=== PATIENT | male | born 1975 | race Hispanic/Latino ===

== ENCOUNTER 2020-10-29 18:30 | Emergency (ER) | payer OTHER ==
[~2020-10-29] VITALS: Ht 175.3 cm; Wt 118.1 kg
[2020-10-29] MEDS ORDERED: LEXA1TAB2 PO (18:40)
[2020-10-29] MEDS ORDERED: ATOR80TA59 PO (18:40)
[2020-10-29] MEDS ORDERED: RISP-9 PO (18:40)
--- NOTE | 2020-10-29 19:36 | REPVR ---
PROCEDURE INFORMATION: Exam: CT Head Without Contrast Exam date and time: 10/29/2020 6:46 PM Age: 44 years old Clinical indication: Other: Seizure; Additional info: Seizure, confusion TECHNIQUE: Imaging protocol: Computed tomography of the head without contrast. Radiation optimization: All CT scans at this facility use at least one of these dose optimization techniques: automated exposure control; mA and/or kV adjustment per patient size (includes targeted exams where dose is matched to clinical indication); or iterative reconstruction. COMPARISON: No relevant prior studies available. FINDINGS: Brain: There is no evidence of intracranial bleed. The plummer-white differentiation appears preserved. Cerebral ventricles: Normal ventricles. Paranasal sinuses: Clear paranasal sinuses. Mastoid air cells: Clear mastoid air cells. Bones/joints: There is no evidence of fracture. Soft tissues: Unremarkable. IMPRESSION: 1. No evidence of bleed. 2. No evidence of mass effect. 3. An MRI scan with contrast might be a more sensitive exam for seizures. Electronically signed by: Matthew Whittaker On 10/29/2020 19:36:14 PM
[2020-10-29 21:47] LABS: BASO # 0.1 10^3/uL (0.0-0.2); BASO % 0.7 % (0.0-1.0); EOS # 0.3 10^3/uL (0.0-0.5); EOS % 3.3 % (0.0-3.0); HEMOGLOBIN 15.9 g/dl (13.5-17.5); LYMPH # 3.7 10^3/uL (1.5-5.0); LYMPH % 38.8 % (24.0-44.0); MEAN CORPUSCULAR HEMOGLOBIN 31.4 pg (27.0-33.0); MEAN CORPUSCULAR HGB CONC 33.8 g/dl (32.0-36.5); MEAN CORPUSCULAR VOLUME 92.7 fl (80.0-96.0); MONO % 10.2 % (2.0-8.0); NEUTROPHILS # 4.4 10^3/uL (1.5-8.5); NEUTROPHILS % 46.5 % (36.0-66.0); PLATELET COUNT, AUTOMATED 196 10^3/uL (150-450); RED BLOOD COUNT 5.07 10^6/uL (4.30-6.10); WHITE BLOOD COUNT 9.5 10^3/uL (4.0-10.0)
[2020-10-29 22:16] LABS: CK-MB VALUE MASS 2.6 NG/ML (<3.6); MB/CK RELATIVE INDEX 2.89 (< OR =4); TROPONIN I 0.02 NG/ML (< 0.10)
[2020-10-29 23:15] VITALS: BP 133/71
--- NOTE | 2020-10-30 11:22 | ECGEPIP ---
[facility] - ED Test Date: 2020-10-29 Pat Name: RENAE MATHEW Department: Room: - Gender: Male [employer] Operator: [facility] : 1975 Requested By: RADHAMES Escalante PA-C Order Number: [id number] Reading MD: Sonja Norton Measurements Intervals [place] Rate: 79 P: 41 NM: 178 QRS: -65 QRSD: 96 T: 17 QT: 396 QTc: 454 Interpretive Statements Normal sinus rhythm Left axis deviation Pulmonary disease pattern NSTTW abnormalities CONSIDER INFERIOR INFARCT No prior Electronically Signed on 10-30-2020 11:22:02 EDT by Sonja Norton
== END 2020-10-29 23:18 | disposition home or self-care (01) ==
LOC: EDSEX 18:30 → M ED 18:30
DX: E86.0 Dehydration (principal); E11.649 Type 2 diabetes mellitus with hypoglycemia without coma; I50.9 Heart failure, unspecified; Z88.0 Allergy status to penicillin